=== PATIENT | male | born 1970 | race Asian ===

== ENCOUNTER 2017-06-21 22:28 | Emergency (ER) | payer OTHER ==
[2017-06-21 22:39] VITALS: TEMP 98.3; BMI 32.3
--- NOTE | 2017-06-21 23:00 | PDOC ---
History of Present Illness - General History Source: Patient Exam Limitations: No Limitations - History of Present Illness Initial Comments: 06/21/17 23:16 46 year old male with significant past medical history of thyroid cancer s/p thyroidectomy who presents to the ED with nausea, generalized weakness, dizziness and high blood pressure. 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 His states that his systolic pressure was 149. Patient reports chest pain when he coughs with occasional white sputum. Patient reports sick contact with son who has cold symptoms 1-2 weeks ago. <Amira Escoto - Last Filed: 06/22/17 00:04> <Kristina Jane - Last Filed: 06/22/17 00:39> - General Chief Complaint: Respiratory Stated Complaint: HIGH BP/CHEST PAIN Time Seen by Provider: 06/21/17 22:56 Past History <Amira Escoto - Last Filed: 06/22/17 00:04> - Past Medical History Anemia: No Asthma: No Cancer: Yes (thyroid) Cardiac Disorders: No CVA: No COPD: No CHF: No Dementia: No Diabetes: No GI Disorders: No Disorders: No HTN: Yes Hypercholesterolemia: Yes Liver Disease: No Seizures: No Thyroid Disease: Yes - Suicide/Smoking/Psychosocial Hx Smoking History: Never smoked Have you smoked in the past 12 months: No Hx Alcohol Use: Yes Drug/Substance Use Hx: No Substance Use Type: None Hx Substance Use Treatment: No <Kristina Jaen - Last Filed: 06/22/17 00:39> - Past Medical History Allergies/Adverse Reactions: Allergies Allergy/AdvReac Type Severity Reaction Status Date / Time hydromorphone HCl Allergy Intermediate Itching Verified 06/21/17 22:39 [From Dilaudid] Home Medications: Ambulatory Orders Amlodipine Besylate 5 mg PO DAILY 10/19/15 Atorvastatin Ca [Lipitor -] 10 mg PO DAILY 10/19/15 Levothyroxine [Synthroid -] 175 mcg PO DAILY 10/19/15 Valsartan/Hydrochlorothiazide [Valsartan-Hctz 160-25 mg Tab] 1 each PO DAILY Aspirin [Aspirin EC] 81 mg PO DAILY 11/25/15 Review of Systems - Review of Systems Able to Perform ROS?: Yes Comments:: 06/21/17 23:16 GENERAL/CONSTITUTIONAL: +weakness. No fever or chills. HEAD, EYES, EARS, NOSE AND THROAT: No change in vision. No ear pain or discharge. No sore throat. GASTROINTESTINAL: +nausea. No vomiting, diarrhea or constipation. GENITOURINARY: No dysuria, frequency, or change in urination. CARDIOVASCULAR: +chest pain. No shortness of breath. RESPIRATORY: +cough. No wheezing, or hemoptysis. MUSCULOSKELETAL: No joint or muscle swelling or pain. No neck or back pain. SKIN: No rash NEUROLOGIC: +dizziness. No headache, vertigo, loss of consciousness, or change in strength/sensation. ENDOCRINE: No increased thirst. No abnormal weight change. HEMATOLOGIC/LYMPHATIC: No anemia, easy bleeding, or history of blood clots. ALLERGIC/IMMUNOLOGIC: No hives or skin allergy. <Amira Escoto - Last Filed: 06/22/17 00:04> *Physical Exam - Vital Signs Last Vital Signs Temp Pulse Resp BP Pulse Ox 98.3 F 87 18 149/83 99 06/21/17 22:30 06/21/17 22:30 06/21/17 22:30 06/21/17 22:30 06/21/17 22:30 - Physical Exam Comments: 06/22/17 00:04 GENERAL: Awake, alert, and fully oriented, in no acute distress HEAD: No signs of trauma EYES: PERRLA, EOMI, sclera anicteric, conjunctiva clear ENT: Auricles normal inspection, hearing grossly normal, nares patent, oropharynx clear without exudates. Moist mucosa NECK: Normal ROM, supple, no lymphadenopathy, JVD, or masses LUNGS: Breath sounds equal, clear to auscultation bilaterally. No wheezes, and no crackles HEART: Regular rate and rhythm, normal S1 and S2, no murmurs, rubs or gallops ABDOMEN: Soft, nontender, normoactive bowel sounds. No guarding, no rebound. No masses EXTREMITIES: Normal range of motion, no edema. No clubbing or cyanosis. No cords, erythema, or tenderness NEUROLOGICAL: Cranial nerves II through XII grossly intact. Normal speech, normal gait SKIN: Warm, Dry, normal turgor, no rashes or lesions noted. <Amira Escoto - Last Filed: 06/22/17 00:04> - Vital Signs Last Vital Signs Temp Pulse Resp BP Pulse Ox 98.3 F 87 18 149/83 99 06/21/17 22:30 06/21/17 22:30 06/21/17 22:30 06/21/17 22:30 06/21/17 22:30 <Kristina Jane - Last Filed: 06/22/17 00:39> Heart Score/ECG Review - History History: Slightly suspicious - Electrocardiogram EKG: Normal - Age Age: </= 47 - Risk Factors Risk Factors Heart Score: Yes Hx Hypercholesterolemia, Yes Hx Hypertension Based on the list above the patient has:: 1-2 risk factors - Troponin Troponin: </= normal limit - Score Heart Score - Total: 1 - ECG Impressions Comment:: EKG read 22:49- NSR 79 bpm, no acute ST/T changes <Kristina Jane - Last Filed: 06/22/17 00:39> ED Treatment Course - LABORATORY CBC & Chemistry Diagram: 06/21/17 23:10 06/21/17 23:10 <Amira Escoto - Last Filed: 06/22/17 00:04> - LABORATORY CBC & Chemistry Diagram: 06/21/17 23:10 06/21/17 23:10 <Kristina Jane - Last Filed: 06/22/17 00:39> *DC/Admit/Observation/Transfer - Attestations Scribe Attestion: 06/21/17 23:18 Documentation prepared by RUBEN Blandon, acting as biomedical service engineer for Kristina Jane MD. <Amira Escoto - Last Filed: 06/22/17 00:04> - Discharge Dispostion Admit: No <Kristina Jane - Last Filed: 06/22/17 00:39> Diagnosis at time of Disposition: Cough - Discharge Dispostion Disposition: HOME Condition at time of disposition: Stable - Referrals Referrals: Krysta Woodruff MD [Primary Care Provider] -
[2017-06-21 23:19] LABS: BASOPHIL 1.1 % (0-2.0); EOSINOPHIL 1.4 % (0-4.5); MCHC 33.8 g/dl (32.0-35.9); MEAN CELL VOLUME 88.9 fl (80-96); MEAN PLT VOLUME 8.9 fl (7.5-11.1); NEUTROPHILS 71.1 % (42.8-82.8); PLATELET COUNT 227 K/MM3 (134-434); RDW 14.2 % (11.9-15.9); WHITE BLOOD COUNT 11.4 K/mm3 (4.0-10.0)
[2017-06-21 23:46] LABS: INR 1.11 (0.82-1.09); PROTHROMBIN TIME (PATIENT) 12.5 SEC (9.98-11.88)
[2017-06-21 23:58] LABS: ALBUMIN 3.9 g/dl (3.4-5.0); ANION GAP 12 (8-16); BILIRUBIN,TOTAL 0.5 mg/dL (0.2-1.0); CALCIUM 9.3 mg/dL (8.5-10.1); CO2 28 mmol/L (21-32); CREATININE 0.9 mg/dL (0.7-1.3); GLUCOSE,RANDOM 93 mg/dL (74-106); SGOT/AST 20 U/L (15-37); SGPT/ALT 37 U/L (12-78); TOT PROT 7.6 g/dl (6.4-8.2)
[2017-06-22 00:01] LABS: ALK PHOS 76 U/L (45-117); CPK 280 IU/L (39-308); TROPONIN I < 0.02 ng/ml (0.00-0.05)
[2017-06-22] MEDS ORDERED: guaiFENesin/CODEINE 10 ML UNIT-DOSE CUPS PO ONE (00:46)
[2017-06-22] MEDS ORDERED: guaiFENesin/CODEINE 5 ML UNIT-DOSE CUPS PO ONE (00:54)
[2017-06-22 01:00] VITALS: BP 144/97; PULSE 73
--- NOTE | 2017-06-22 10:41 | EKG ---
Test Reason : Blood Pressure : / mmHG Vent. Rate : 079 BPM Atrial Rate : 079 BPM P-R Int : 132 ms QRS Dur : 092 ms QT Int : 384 ms P-R-T Axes : 050 007 005 degrees QTc Int : 440 ms NORMAL SINUS RHYTHM MINIMAL VOLTAGE CRITERIA FOR LVH, MAY BE NORMAL VARIANT NONSPECIFIC T WAVE ABNORMALITY ABNORMAL ECG WHEN COMPARED WITH ECG OF 04-SEP-2007 10:14, NO SIGNIFICANT CHANGE WAS FOUND Confirmed by KARLOS QUINONEZ, NIELS ([id number]) on 06/22/2017 10:40:57 AM Referred By: Confirmed By:NIELS EVERETT MD
== END 2017-06-22 01:03 | disposition home or self-care (01) ==
LOC: JER 22:28
DX: R05 Cough (principal)
CPT/HCPCS: 36415; 71010-TC; 80053; 82550; 82553; 84484; 85025; 85610; 87804; 93005; 93010; 99282-25

== ENCOUNTER 2018-10-04 19:51 | Emergency (ER) | payer OTHER ==
[2018-10-04 20:14] VITALS: TEMP 98.2; BMI 31.6
--- NOTE | 2018-10-04 20:16 | PDOC ---
Rapid Medical Evaluation Chief Complaint: Chest Pain Medical Evaluation: Allergies Allergy/AdvReac Type Severity Reaction Status Date / Time hydromorphone HCl Allergy Intermediate Itching Verified 06/21/17 22:39 [From Dilaudid] 10/04/18 20:11 I have performed a brief in-person evaluation of this patient. The patient presents with a chief complaint of:CP x 2 hours, midsternal with no radiation Pertinent physical exam findings: pale , mild diaphoresis I have ordered the following: EKG, CMP, CBC, Card enzymes, Pt/INR The patient will proceed to the ED for further evaluation. 10/04/18 20:13 10/04/18 20:14 10/04/18 20:15 Discharge Disposition - Diagnosis Chest pain - Referrals - Patient Instructions - Post Discharge Activity
[2018-10-04 21:08] LABS: BASO % 0.7 % (0-2.0); EOS % 0.8 % (0-4.5); HEMATOCRIT 44.1 % (35.4-49); HEMOGLOBIN 15.4 GM/dL (11.7-16.9); LYMPH % 13.9 % (8-40); MCH 29.5 pg (25.7-33.7); MCHC 34.8 g/dl (32.0-35.9); MEAN CELL VOLUME 84.6 fl (80-96); MEAN PLT VOLUME 9.1 fl (7.5-11.1); NEUT % 76.6 % (42.8-82.8); PLATELET COUNT 204 K/MM3 (134-434); RBC 5.22 M/mm3 (4.00-5.60); RDW 13.9 % (11.9-15.9); WHITE BLOOD COUNT 10.6 K/mm3 (4.0-10.0)
--- NOTE | 2018-10-04 21:10 | PDOC ---
History of Present Illness - General Chief Complaint: Chest Pain Stated Complaint: CHEST PAIN Time Seen by Provider: 10/04/18 20:29 - History of Present Illness Initial Comments: Andriy Hayes is a 47yo man with a PMH of HTN, HLD, thyroid CA s/p total thyroidectomy, psoriasis, psoriatic arthritis who presents with chest pain and diaphoresis. He reports that he checked his blood pressure in the morning and it was higher than normal prior to taking his medication. He went to work in the late afternoon, and had started work as a business objects when he began to feel the chest pain at around 5pm. He was sitting and driving when it started. The pain was localized to a spot at the left sternal border at around rib 3-4. It was not pleuritic and did not radiate, 7/10 in intensity at worst, now 4/10. He describes it as sharp. Initially he just had the pain with no associated symptoms, but he began to have sweating around 30 minutes later and a coworker called an ambulance. Mr Hayes was especially concerned as his blood pressure was SBP 190's when initially checked by EMS. However, he denies any lightheadedness, nausea/vomiting, AMS, or neurological symptoms with either the chest pain or hypertension. He has never experienced pain like this previously. He denies any recent symptoms of URI, SOB, sick contacts, recent travel, or headache. He does report fatigue recently and feels that he has not been sleeping well. Past History - Past Medical History Allergies/Adverse Reactions: Allergies Allergy/AdvReac Type Severity Reaction Status Date / Time hydromorphone HCl Allergy Intermediate Itching Verified 06/21/17 22:39 [From Dilaudid] Home Medications: Ambulatory Orders Amlodipine Besylate 10 mg PO DAILY 10/19/15 Atorvastatin Ca [Lipitor -] 10 mg PO DAILY 10/19/15 Levothyroxine [Synthroid -] 175 mcg PO DAILY 10/19/15 Valsartan/Hydrochlorothiazide [Valsartan-Hctz 160-25 mg Tab] 1 each PO DAILY Aspirin [Aspirin EC] 81 mg PO DAILY 11/25/15 Anemia: No Asthma: No Cancer: Yes (thyroid) Cardiac Disorders: No CVA: No COPD: No CHF: No Dementia: No Diabetes: No GI Disorders: No Disorders: No HTN: Yes Hypercholesterolemia: Yes Liver Disease: No Seizures: No Thyroid Disease: Yes - Suicide/Smoking/Psychosocial Hx Smoking History: Never smoked Have you smoked in the past 12 months: No Hx Alcohol Use: No Drug/Substance Use Hx: No Substance Use Type: None Hx Substance Use Treatment: No Review of Systems - Review of Systems Comments:: General: No fevers, no chills, no weight or appetite change, no malaise HEENT: No changes in vision, no changes in hearing, no congestion, no sore throat CV: +Chest pain. No palpitations, no LE edema Pulm: No SOB, no cough, no wheezing GI: No nausea or vomiting, no change in bowel habits, no melena : No frequency, no urgency, no dysuria Musc: No back pain, no joint swelling, no recent injury Skin: No rash, no lesions, no erythema Endo: No excessive thirst, no heat/cold intolerance Heme: No unusual bruising or bleeding, no swollen glands Neuro: No syncope, no numbness/tingling, no focal weakness Vasc: No claudication Psych: No recent change in mood, no SI or HI *Physical Exam - Vital Signs Last Vital Signs Temp Pulse Resp BP Pulse Ox 98.2 F 93 H 20 157/98 97 10/04/18 20:08 10/04/18 20:08 10/04/18 20:08 10/04/18 20:08 10/04/18 20:08 - Physical Exam Comments: General: Comfortable, no acute distress HEENT: PERRL, EOMI, MMM, voice normal, normal neck ROM, no LAD Cards: RRR, no murmur appreciated Pulm: Comfortable on room air, clear to auscultation bilaterally Abd: Soft, nontender, nondistended Ext: Atraumatic. No LE edema. ROM intact. Strength 5/5 and equal bilaterally Vasc: Extremities WWP. Skin: Normal color, no rashes or lesions Neuro: A&Ox3, CN grossly intact, normal speech, motor/sensory grossly intact and symmetric Psych: Mood appropriate to situation Moderate Sedation - Procedure Monitoring Vital Signs: Procedure Monitoring Vital Signs Temperature 98.2 F 10/04/18 20:08 Pulse Rate 93 H 10/04/18 20:08 Respiratory Rate 20 10/04/18 20:08 Blood Pressure 157/98 10/04/18 20:08 O2 Sat by Pulse Oximetry (%) 97 10/04/18 20:08 ED Treatment Course - LABORATORY CBC & Chemistry Diagram: 10/04/18 20:49 10/04/18 20:49 Medical Decision Making - Medical Decision Making 10/04/18 20:53 Andriy Hayes is a 47yo man with a PMH of HTN, HLD, thyroid CA s/p total thyroidectomy, psoriasis, psoriatic arthritis who presents with 7/10, sharp, non -radiating left-sided chest pain that started at around 5pm. He had associated diaphoresis about 30 minutes later, and EMS noted hypertension to the SBP 190's when they arrived. - DDx includes ACS, non-specific chest pain, anxiety. Could be hyperthyroidism as Mr Hayes takes synthroid. - CBC, chemistry, trop, EKG, CXR ordered - Pt endorse cough for [address] Mahmood, could have pneumonia or respiratory cause of chest pain 10/04/18 22:08 - Labs reviewed. Remarkable only for hypokalemia at 3.2, troponin negative - 40mEq potassium PO ordered for repletion - EKG completed. NSR with HR 91. normal axis. No ST elevations. 10/04/18 22:39 - CXR unremarkable, no change noted from prior though xray from 05/2017 is significantly overexposed - Discussed with Mr Hayes and his . 10/05/18 01:25 - Repeat trop negative - Discussed results with Mr Hayes and his . They both request to be discharged home rather than admitted to obs. Will follow up with cardiology within the next week. Discussed return precautions at length, and they state understanding and agreement with the plan. Discussed with Dr Mahmood. Nuria Ignacio PGY1 *DC/Admit/Observation/Transfer Diagnosis at time of Disposition: Nonspecific chest pain - Discharge Dispostion Disposition: HOME Condition at time of disposition: Stable - Referrals Referrals: Rafita Gama MD [Staff Physician] - - Patient Instructions Printed Discharge Instructions: DI for Chest Pain Additional Instructions: Discharge Instructions: - You were seen in the emergency department for chest pain - You had blood tests, an EKG to check your heart, and a chest xray. All of your results were normal. It does not appear that your heart or lungs were the source of your pain. - You have been referred to a log hooker, Dr Gama. Please make an appointment to see him within the next week. - Continue to take all of your home medications as previously prescribed. - Seek medical care immediately if you have any worsening chest pain, pain with exercise, shortness of breath, or any medical emergency. - Post Discharge Activity Forms/Work/School Notes: Back to Work
[2018-10-04 21:14] VITALS: BP 162/93; PULSE 92
--- NOTE | 2018-10-04 21:21 | PDOC ---
Attending Attestation - HPI HPI: 10/04/18 21:38 The patient is a 47 year old male with a PMH of HTN, HLD, thyroid CA s/p total thyroidectomy, psoriasis, psoriatic arthritis who presents to the ER with chest pain that began today at 5PM. Patient states the chest pain is left sided, sharp , 7/10 in severity, and now 4/10 after taking aspirin. Patient denies any precipitating factors including palpitations, lightheadedness, or dizziness. Patient does report diaphoresis after the onset of his chest pain. The patient denies shortness of breath, headache and dizziness. Denies fever, chills, nausea, vomit, diarrhea and constipation. Denies dysuria, frequency, urgency and hematuria. Allergies: NKA Past surgical history: thyroidectomy Social history: No reported alcohol, drug or cigarette use. - Physicial Exam PE: 10/04/18 22:14 ADULT PHYSICAL EXAM Constitutional: Awake, alert, oriented. No acute distress. Neck: Supple. Full ROM. No lymphadenopathy. Cardiovascular: Regular rate. Regular rhythm. S1, S2 regular. Distal pulses are 2+ and symmetric. (+) Reproducible left sided anterior chest wall tenderness. Pulmonary/Chest: No evidence of respiratory distress. Clear to auscultation bilaterally No wheezing, rales or rhonchi. Abdominal: Soft and non-distended. There is no tenderness. No rebound, guarding or rigidity. No organomegaly. No palpable masses. Good bowel sounds. Back: No CVA tenderness. Musculoskeletal: No edema. No cyanosis. No clubbing. Full range of motion in all extremities. No calf tenderness. Radial/pedal pulses are intact and 2+ bilaterally Skin: No rashes. Neurological: Alert and oriented to person, place, and time. Cranial nerves II -XII are grossly intact. Normal speech. Steady gait. Psychiatric: Good eye contact. Normal interaction, affect and behavior. <Leandra Be - Last Filed: 10/04/18 22:14> - Resident Resident Name: Nuria Ignacio - ED Attending Attestation I have performed the following: I have examined & evaluated the patient, The case was reviewed & discussed with the resident, I agree w/resident's findings & plan, Exceptions are as noted - Medical Decision Making 10/04/18 21:10 I, Dr. Yara Mahmood, DO, attest that this document has been prepared under my direction and personally reviewed by me in its entirety. I further attest, that it accurately reflects all work, treatment, procedures and medical decision -making performed by me. 10/04/18 21:11 47yo 47yo male with L anterior chest wall pain assoc with diaphoresis earlier today -given asa prior to arrival -pt states cp improved, mild and 2/10 -not sob -no nausea -no radiation -has had a cough x 4 days - nonproductive -will send labs, ekg, cxr -reproducible chest wall pain 10/04/18 22:34 cxr clear trop negative will monitor and repeat trop at midnight 10/05/18 01:33 repeat trop negative stable for dc to home and outpt cards follow up <Yara Mahmood - Last Filed: 10/05/18 01:34> Heart Score/ECG Review - ECG Intrepretation Comment:: 10/04/18 21:13 sinus at 91, nl axis, nl interval, no acute st/t wave findings <Yara Mahmood - Last Filed: 10/05/18 01:34>
[2018-10-04 21:25] LABS: INR 1.17 (0.83-1.09); PROTHROMBIN TIME (PATIENT) 13.8 SEC (9.7-13.0)
[2018-10-04 21:41] LABS: ALBUMIN 4.2 g/dl (3.4-5.0); ALK PHOS 84 U/L (45-117); ANION GAP 10 MMOL/L (8-16); BILIRUBIN,TOTAL 0.4 mg/dL (0.2-1); BLOOD UREA NITROGEN 11 mg/dL (7-18); CALCIUM 9.4 mg/dL (8.5-10.1); CHLORIDE 100 mmol/L (98-107); CO2 27 mmol/L (21-32); CREATININE 0.8 mg/dL (0.55-1.3); GLUCOSE,RANDOM 99 mg/dL (74-106); POTASSIUM 3.2 mmol/L (3.5-5.1); SGOT/AST 21 U/L (15-37); SGPT/ALT 31 U/L (13-61); SODIUM 136 mmol/L (136-145); TOT PROT 7.9 g/dl (6.4-8.2)
[2018-10-04] MEDS ORDERED: POTASSIUM CHLORIDE TABS 20 MEQ TABLET.ER (FP) PO ONE ×3 (22:08→22:31)
--- NOTE | 2018-10-05 13:21 | EKG ---
Test Reason : Blood Pressure : / mmHG Vent. Rate : 091 BPM Atrial Rate : 091 BPM P-R Int : 142 ms QRS Dur : 104 ms QT Int : 376 ms P-R-T Axes : 064 016 047 degrees QTc Int : 462 ms NORMAL SINUS RHYTHM POSSIBLE LEFT ATRIAL ENLARGEMENT NONSPECIFIC T WAVE ABNORMALITY PROLONGED QT ABNORMAL ECG WHEN COMPARED WITH ECG OF 21-JUN-2017 22:45, NONSPECIFIC T WAVE ABNORMALITY, WORSE IN LATERAL LEADS Confirmed by MICHAEL QUINONEZ, DANIELA ([id number]) on 10/05/2018 1:21:20 PM Referred By: Confirmed By:DANIELA RODRIGUEZ MD
== END 2018-10-05 01:46 | disposition home or self-care (01) ==
LOC: JER 19:51
DX: R07.89 Other chest pain (principal); E87.6 Hypokalemia; I10 Essential (primary) hypertension; E89.0 Postprocedural hypothyroidism; Z85.850 Personal history of malignant neoplasm of thyroid
CPT/HCPCS: 36415; 71046-TC-FY; 80053; 82550; 82553; 84484; 85025; 85610; 93005; 93010; 99283-25

== ENCOUNTER 2019-08-29 19:51 | Emergency (ER) | payer OTHER ==
[2019-08-29 20:30] VITALS: BP 131/80; PULSE 76; TEMP 98.4; BMI 31.5
[2019-08-29] MEDS ORDERED: DIPHTH,PERTUSS(ACELL),TET 0.5 ML DISP.SYRIN IM ONE ×2 (20:59→21:01)
--- NOTE | 2019-08-29 21:02 | PDOC ---
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 Patient does not recall last tetanus vaccine. Denies any symptoms. Reported had mild bleeding from puncture wound but no bleeding now. Timing/Duration: reports: just prior to arrival Past History - Past Medical History Allergies/Adverse Reactions: Allergies Allergy/AdvReac Type Severity Reaction Status Date / Time hydromorphone HCl Allergy Intermediate Itching Verified 06/21/17 22:39 [From Dilaudid] Home Medications: Ambulatory Orders Amlodipine Besylate 10 mg PO DAILY 10/19/15 Atorvastatin Ca [Lipitor -] 10 mg PO DAILY 10/19/15 Levothyroxine [Synthroid -] 175 mcg PO DAILY 10/19/15 Valsartan/Hydrochlorothiazide [Valsartan-Hctz 160-25 mg Tab] 1 each PO DAILY Aspirin [Aspirin EC] 81 mg PO DAILY 11/25/15 Sulfamethoxazole/Trimethoprim [Bactrim Ds -] 1 tab PO BID #14 tablet 08/29/19 Anemia: No Asthma: No Cancer: Yes (thyroid) Cardiac Disorders: No CVA: No COPD: No CHF: No Dementia: No Diabetes: No GI Disorders: No Disorders: No HTN: Yes Hypercholesterolemia: Yes Liver Disease: No Seizures: No Thyroid Disease: Yes - Immunization History Td Vaccination: Yes TDAP Vaccination: Yes Immunization Up to Date: Yes - Psycho Social/Smoking Cessation Hx Smoking History: Never smoked Have you smoked in the past 12 months: No Hx Alcohol Use: No Drug/Substance Use Hx: No Substance Use Type: None Hx Substance Use Treatment: No Review of Systems - Review of Systems Able to Perform ROS?: Yes Is the patient limited Czech proficient: No Constitutional: No: Chills, Fever, Malaise HEENTM: No: Symptoms Reported, See HPI, Eye Pain, Blurred Vision, Tearing, Recent change in vision, Double Vision, Cataracts, Ear Pain, Ocular Prothesis, Ear Discharge, Nose Pain, Nose Congestion, Tinnitus, Nose Bleeding, Hearing Loss , Throat Pain, Throat Swelling, Mouth Pain, Dental Problems, Difficulty Swallowing, Mouth Swelling, Other Respiratory: No: Symptoms reported, See HPI, Cough, Orthopnea, Shortness of Breath, SOB with Exertion, SOB at Rest, Stridor, Wheezing, Productive cough, Hemoptysis, Other Cardiac (ROS): No: Symptoms Reported, See HPI, Chest Pain, Edema, Irregular Heart Rate, Lightheadedness, Palpitations, Syncope, Chest Tightness, Other Musculoskeletal: Yes: Symptoms Reported, See HPI, Muscle Pain (mild pain over nail puncture area) Integumentary: Yes: Symptoms Reported, See HPI, Other (puncture to right middle fingertip) Neurological: No: Symptoms reported All Other Systems: Reviewed and Negative *Physical Exam - Vital Signs Last Vital Signs Temp Pulse Resp BP Pulse Ox 98.4 F 76 19 131/80 98 08/29/19 20:27 08/29/19 20:27 08/29/19 20:27 08/29/19 20:27 08/29/19 20:27 - Physical Exam General Appearance: Yes: Nourished, Appropriately Dressed. No: Apparent Distress HEENT: positive: Normal ENT Inspection Respiratory/Chest: negative: Normal Breath Sounds, Respiratory Distress Musculoskeletal: positive: Normal Inspection Extremity: positive: Normal Capillary Refill, Normal Inspection Integumentary: positive: Normal Color. 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 Patient does not recall last tetanus vaccine. Denies any symptoms. Reported had mild bleeding from puncture wound but no bleeding now. Exam significant for no visible puncture wound with mild dried blood to plantar aspect distal phalange of right middle finger. Given unknown tetanus status, tetanus vaccine given the ED. Patient stable for discharge and will put on 1 week course of Bactrim antibiotics for infection prophylaxis Discharge - Discharge Information Problems reviewed: Yes Clinical Impression/Diagnosis: Puncture wound of right middle finger without foreign body without damage to nail Qualifiers: Encounter type: initial encounter Qualified Code(s): S61.232A - Puncture wound without foreign body of right middle finger without damage to nail, initial encounter Condition: Stable Disposition: HOME - Admission No - Additional Discharge Information Prescriptions: Sulfamethoxazole/Trimethoprim [Bactrim Ds -] 1 tab PO BID #14 tablet - Follow up/Referral Referrals: Palmer Sampson MD [Primary Care Provider] - - Patient Discharge Instructions Patient Printed Discharge Instructions: DI for Puncture Wound Additional Instructions: Take prescribed antibiotics and finish. Take Motrin as needed for pain. Follow -up with primary care as needed - Post Discharge Activity
== END 2019-08-29 21:06 | disposition home or self-care (01) ==
LOC: JERFT 19:51 → JER 19:51 → JERFT 21:06
PROC: 3E0234Z Introduction of Serum, Toxoid and Vaccine into Muscle, Percutaneous Approach (ICD-10-PCS; principal; 2019-08-29)
DX: S61.232A Puncture wound without foreign body of right middle finger without damage to nail, initial encounter (principal); W45.0XXA Nail entering through skin, initial encounter; Y93.89 Activity, other specified; Y92.89 Other specified places as the place of occurrence of the external cause; Y99.0 Civilian activity done for income or pay; Z88.5 Allergy status to narcotic agent; I10 Essential (primary) hypertension; E78.00 Pure hypercholesterolemia, unspecified; Z85.850 Personal history of malignant neoplasm of thyroid
CPT/HCPCS: 90715; 99283-25

== ENCOUNTER 2021-03-15 03:07 | Emergency (ER) | payer OTHER ==
[2021-03-15 03:24] VITALS: BP 128/83; PULSE 79; TEMP 97.8; BMI 31.2
[2021-03-15] MEDS ORDERED: TETRACAINE 0.5% HCL 0.6ML DROPPER.BOTTLE OS ONE (03:44)
[2021-03-15] MEDS ORDERED: FLUORESCEIN NA 1 EA STRIP OS ONE (03:44)
[2021-03-15] MEDS ORDERED: TETRACAINE 0.5% OPHTH SOLN 2 ML BOTTLE ONE ×2 (03:50→03:58)
[2021-03-15] MEDS ORDERED: FLUORESCEIN NA 1 EA STRIP ONE ×2 (03:50→03:58)
[2021-03-15] MEDS ORDERED: GENTAMICIN SULFATE 0.3% OPHTHALMIC (EYE DROPS) 5ML BOTTLE OD ONE (04:00)
[2021-03-15] MEDS ORDERED: GENTAMICIN SULFATE 0.3% OPHTHALMIC (EYE DROPS) 5ML BOTTLE ONE (04:01)
[2021-03-15] MEDS ORDERED: IBUPROFEN 600 MG TABLET (FP) PO ONE ×2 (04:02)
== END 2021-03-15 04:48 | disposition home or self-care (01) ==
LOC: JER 03:07
DX: S05.01XA Injury of conjunctiva and corneal abrasion without foreign body, right eye, initial encounter (principal)
CPT/HCPCS: 99283-25

== ENCOUNTER 2023-05-08 05:25 | Day surgery (SDC) | payer OTHER ==
[2023-05-03 12:09] VITALS: BMI 31.4
[2023-05-08 11:08] VITALS: TEMP 98
[2023-05-08 11:38] VITALS: BP 110/63; PULSE 62; RESP 15
== END 2023-05-08 11:54 | disposition home or self-care (01) ==
LOC: JASU-ENDO 05:25
PROVIDERS: ATTEND Internal Medicine Gastroenterology
PROC: 0DJD8ZZ Inspection of Lower Intestinal Tract, Via Natural or Artificial Opening Endoscopic (ICD-10-PCS; principal; 2023-05-08 11:00)
DX: Z12.11 Encounter for screening for malignant neoplasm of colon (principal); K57.30 Diverticulosis of large intestine without perforation or abscess without bleeding; I10 Essential (primary) hypertension